=== PATIENT | male | born 1990 | race Asian ===

== ENCOUNTER 2025-01-24 09:41 | Outpatient (CLI) | payer BC | END 2025-01-24 09:42 | disposition home or self-care (01) | LOC: CSHSLEEP 09:41 | PROVIDERS: ATTEND Internal Medicine | DX: G47.33 Obstructive sleep apnea (adult) (pediatric) (principal); R53.83 Other fatigue; R06.83 Snoring; E66.9 Obesity, unspecified; Z68.30 Body mass index [BMI] 30.0-30.9, adult | CPT/HCPCS: 95800 ==